=== PATIENT | female | born 1990 | race Caucasian/White ===

== ENCOUNTER 2020-05-15 10:15 | Outpatient (CLI) | payer OTHER, SELFPAY ==
--- NOTE | ~2020-05-15 | US_ITS ---
EXAMINATION: US abdomen complete EXAM DATE: 05/15/2020 11:23 INDICATION: Low abdominal pain. TECHNIQUE: Multiple grayscale and Doppler images of the complete abdomen were obtained (by a technolo gist who performed the scan) and subsequently reviewed. Comparison is made to prior examination from 05/31/2014. FINDINGS: The abdominal aorta is normal in caliber. Visualized portion IVC is patent. The pancreatic head a nd body are normal in appearance. The pancreatic tail is not visualized. The liver has normal echogenicity and contour. There are no focal liver lesions identified. There is no evidence of intrahepatic biliary duct dilation. Portal venous flow was seen in the hepatopedal , normal direction and has normal Doppler waveform. Common bile duct measures 3 mm, which is normal. The gallbladder wall is normal in thickness, with ex pected amount of distention. No sonographic evidence of pericholecystic fluid. There is no cholelit hiases. Technologist performing exam reports patient did not demonstrate sonographic Lewis's sign. Please note that this sign is less reliable in patients who have received pain medication. Right kidney: There is normal contour and echogenicity. It measures 12.5 x 5.1 x 4.3 centimeters. There are no focal renal lesions identified. There is no hydronephrosis. Left kidney: There is normal contour and echogenicity. It measures 12.0 x 5.1 x 5.7 centimeters. T here are no focal renal lesions identified. There is no hydronephrosis. The spleen measures 11.3 centimeters and is morphologically normal. IMPRESSION: Unremarkable complete abdominal ultrasound exam. Reviewed, dictated and finalized at location A.
== END 2020-05-15 10:16 | disposition home or self-care (01) ==
PROVIDERS: PCP Family Medicine; Visit Provider Nurse Practitioner Family
DX: R10.30 Lower abdominal pain, unspecified (principal)
CPT/HCPCS: 76700

== ENCOUNTER 2020-10-12 13:55 | Outpatient (CLI) | payer OTHER, SELFPAY | END 2020-10-12 13:56 | disposition home or self-care (01) | LOC: ANHAUDIO 13:57 | PROVIDERS: PCP Family Medicine; Visit Provider Otolaryngology | DX: H69.80 Other specified disorders of Eustachian tube, unspecified ear (principal) | CPT/HCPCS: 92557; 92567 ==

== ENCOUNTER 2020-10-27 10:51 | Outpatient (CLI) | payer OTHER, SELFPAY ==
--- NOTE | ~2020-10-27 | CT_ITS ---
EXAMINATION: CT sinus wo con DATE: 10/27/2020 11:15 INDICATION: Pain and pressure over sinuses TECHNIQUE: Computed tomography (CT) of the paranasal sinuses was performed without contrast. Iterativ e reconstruction technique was employed. Exam dose: 302.19 mGy-cm total exam DLP. COMPARISON: 04/25/2017 CT sinuses FINDINGS: The nasal septum is midline. The nasal turbinates are moderately prominent in size, right g reater than left. There is evidence of resection of the uncinate processes and partial ethmoidectomies bilaterally. The paranasal sinuses and ostiomeatal units are patent. The mastoid air cells are normally developed and aerated. Middle and inner ear apparatus appear normal bilaterally. IMPRESSION: Postoperative changes Patent paranasal sinuses, ostiomeatal units and mastoid air cells Reviewed, dictated and finalized at Location A. Reviewed, dictated and finalized at location A. MOBILE RENTAL CLERK
== END 2020-10-27 10:52 | disposition home or self-care (01) ==
PROVIDERS: PCP Family Medicine; Visit Provider Otolaryngology
DX: J32.9 Chronic sinusitis, unspecified (principal); Z98.890 Other specified postprocedural states
CPT/HCPCS: 70486

== ENCOUNTER 2020-11-03 10:55 | Outpatient (CLI) | payer OTHER, SELFPAY ==
--- NOTE | ~2020-11-03 | XR_ITS ---
EXAMINATION: XR chest 2V DATE: 11/03/2020 11:08 INDICATION: Palpitations. TECHNIQUE: Frontal and lateral views of the chest were obtained. COMPARISON: Chest 2 views 04/03/2017 FINDINGS: The chest demonstrates clear lungs without pneumonia, pleural effusion, or pneumothorax. Th e heart size is normal. IMPRESSION: 1. No acute cardiopulmonary disease. Reviewed, dictated and finalized at location A. RVISOR REMELT
== END 2020-11-03 10:56 | disposition home or self-care (01) ==
PROVIDERS: PCP Family Medicine; Visit Provider Nurse Practitioner Family
DX: R00.2 Palpitations (principal); R07.89 Other chest pain
CPT/HCPCS: 71046

== ENCOUNTER 2021-06-05 07:53 | Outpatient (CLI) | payer OTHER, SELFPAY | END 2021-06-05 07:54 | disposition home or self-care (01) | LOC: ANHBWCAUD 07:53 | PROVIDERS: PCP Family Medicine; Visit Provider Otolaryngology | DX: H90.3 Sensorineural hearing loss, bilateral (principal); H72.02 Central perforation of tympanic membrane, left ear | CPT/HCPCS: 92557; 92567 ==

== ENCOUNTER 2021-06-08 12:25 | Outpatient (RCR) | payer OTHER, SELFPAY | END 2021-09-06 23:59 | disposition home or self-care (01) | LOC: ANHAUDASC 12:25 | PROVIDERS: PCP Family Medicine; Visit Provider Otolaryngology | DX: Z46.1 Encounter for fitting and adjustment of hearing aid (principal) | CPT/HCPCS: V5160; V5261 ==

== ENCOUNTER 2021-08-01 12:50 | Outpatient (CLI) | payer OTHER, SELFPAY ==
--- NOTE | 2021-08-01 | ECG_ITS ---
Measurements Intervals [place] Rate: 90 P: 56 OK: 116 QRS: 57 QRSD: 86 T: 36 QT: 358 QTc: 440 Interpretive Statements SINUS RHYTHM WITH SHORT OK INTERVAL INCOMPLETE RIGHT BUNDLE BRANCH BLOCK BORDERLINE T WAVE ABNORMALITY- ANTERIOR LEADS BASELINE WANDER- V3 BORDERLINE ECG Electronically Signed On 08-01-2021 13:42:14 INVESTIGATIONS CHIEF by Diogo Torres D.O.
== END 2021-08-01 12:51 | disposition home or self-care (01) ==
LOC: ANHCARD 12:52
PROVIDERS: PCP Family Medicine; Visit Provider Nurse Practitioner Family
DX: R00.2 Palpitations (principal)
CPT/HCPCS: 93005

== ENCOUNTER 2021-09-18 09:18 | Outpatient (RCR) | payer OTHER, SELFPAY | END 2021-12-17 23:59 | disposition home or self-care (01) | LOC: ANHBWCAUD 09:18 | PROVIDERS: PCP Family Medicine; Visit Provider Family Medicine | DX: Z46.1 Encounter for fitting and adjustment of hearing aid (principal) | CPT/HCPCS: 99199 ==

== ENCOUNTER 2021-10-23 13:41 | Outpatient (CLI) | payer OTHER, SELFPAY ==
--- NOTE | 2021-10-23 13:46 | ECHO_ITS ---
Patient Info Name: Lucy Raygoza Age: 31 years : 1990 Gender: Female Ht: 65 in Wt: 150 lbs BSA: 1.78 m2 HR: 103 bpm BP: 114 / 78 mmHg Technical Quality: Good Exam Date: 10/23/2021 1:55 PM Exam Location: [facility] Patient Status: Outpatient Admit Date: 10/23/2021 Staff Ordering Physician: Diogo Torres DO Mold Sheet Cleaner: Ofelia Glasgow RDCS Attending Provider: Diogo Torres DO Referring Physician: Brian CERRATO; Exam Type: CA echo doppler color flow Study Info Indications R06.00 - Dyspnea, unspecified Complete two-dimensional, color flow and Doppler transthoracic echocardiogram is performed. Summary 1. Complete two-dimensional, color flow and Doppler transthoracic echocardiogram is performed. 2. Left ventricular chamber dimension is normal. 3. Left ventricular systolic function is normal, estimated at 65-70%. 4. The left ventricular diastolic function is normal. 5. E/e' 5 is not elevated. 6. Global longitudinal strain is normal at -20.3%. 7. The aortic valve is not well visualized. Cannot determine number of aortic valve leaflets. 8. There is mild aortic valve sclerosis. 9. There is trace tricuspid valve regurgitation. Left Ventricle E/e' 5 is not elevated. Global longitudinal strain is normal at -20.3%. Left ventricular chamber dimension is normal. Left ventricular systolic function is normal, estimated at 65-70%. The left ventricular diastolic function is normal. Right Ventricle Right ventricular chamber dimension is normal. Right ventricular systolic function is normal. Left Atria Left atrial chamber dimension is normal. Right Atria Right atrial chamber dimension is normal. Aortic Valve The aortic valve is not well visualized. Cannot determine number of aortic valve leaflets. There is mild aortic valve sclerosis. There is no aortic valve stenosis. There is no aortic valve regurgitation. Pulmonic Valve There is no pulmonic regurgitation. Mitral Valve There is no mitral valve stenosis. There is no mitral valve regurgitation. Tricuspid Valve RVSP is not calculated due to an inadequate TR jet. There is trace tricuspid valve regurgitation. Pericardium/Pleural There is no pericardial effusion. Inferior Vena Cava Normal inferior vena cava with >50% collapse upon inspiration consistent with normal right atrial pressure, 5 mmHg. Aorta The aortic root size at the sinus of Valsalva is normal. Left Ventricular Outflow Tract Name Value Normal LVOT 2D LVOT Diameter 2.0 cm LVOT Doppler LVOT Peak Gradient 4 mmHg LVOT Mean Gradient 3 mmHg LVOT VTI 21 cm LVOT VTI/AV VTI Ratio 0.9 LVOT Stroke Volume 65 ml LVOT CO 6.0 l/min LVOT CI 3.4 l/min/m2 Pulmonic Valve Name Value Normal
== END 2021-10-23 13:42 | disposition home or self-care (01) ==
LOC: ANHCARD 13:41
PROVIDERS: PCP Family Medicine; Visit Provider Internal Medicine Cardiovascular Disease
DX: R06.00 Dyspnea, unspecified (principal)
CPT/HCPCS: 93306

== ENCOUNTER 2022-04-30 11:53 | Outpatient (CLI) | payer OTHER, SELFPAY | END 2022-04-30 11:54 | disposition home or self-care (01) | LOC: ANHBWCAUD 11:53 | PROVIDERS: PCP Family Medicine; Visit Provider Otolaryngology | DX: H90.A21 Sensorineural hearing loss, unilateral, right ear, with restricted hearing on the contralateral side (principal) | CPT/HCPCS: 92557; 92567 ==

== ENCOUNTER 2022-07-18 17:04 | Outpatient (CLI) | payer OTHER, SELFPAY ==
--- NOTE | ~2022-07-18 | MR_ITS ---
EXAMINATION: MR brain IAC wo/w con DATE: 07/18/2022 18:00 INDICATION: Profound left-sided hearing loss. Left-sided tinnitus. Headache. TECHNIQUE: Magnetic resonance imaging (MRI) of the brain, brainstem, and internal auditory canals was performed without and with 15 mL MultiHance intravenous contrast. COMPARISON: None. FINDINGS: There is no intracranial hemorrhage, acute infarction, or abnormal intracranial mass lesion . The ventricles are normal in size. The paranasal sinuses are clear. The orbits are normal. The inte rnal auditory canals and inner and middle ears are normal. The mastoid air cells are normal. IMPRESSION: 1. Normal brain. Reviewed, dictated and finalized at location A. ENTIALING COORDINATOR IMPRESSION: 1. Normal brain.
== END 2022-07-18 17:05 | disposition home or self-care (01) ==
PROVIDERS: PCP Family Medicine
DX: H91.90 Unspecified hearing loss, unspecified ear (principal)
CPT/HCPCS: 70553; A9577

== ENCOUNTER 2022-09-16 00:09 | Day surgery (SDC) | payer OTHER, SELFPAY ==
[2022-09-04 13:31] VITALS: BMI 26.7
--- NOTE | 2022-09-04 13:49 | PC.NURSE ---
Report to the Outpatient Waiting Room, entrance under the green pavilion located off [facility], at time 0615 on date 09/16/22. Planned Procedure Time: _0815 Time changes happen often and if your time is changed the preop area will call you the afternoon before. - You and your visitor will be asked to self-screen and do not enter if you have any COVID symptoms. - Only one visitor is requested with a max of two and NO children visitors are allowed at this time. - The patient visitor may be requested to leave or wait in car when not with patient due to distancing restrictions. - A mask is optional within the hospital. Patients may have clear liquids (water, carbonated beverages, clear teas, apple juice) until 3 hours prior to surgery with a maximum of 20 ounces. - No food from midnight until time of surgery - Infants may have breast milk until 4 hours before surgery, infant formula 6 hours prior to surgery. - Children will be allowed to drink immediately following surgery. If applicable, please bring a bottle or sippy cup to assist with drinking. Juice, water, soda, and popsicles are readily available. For infants on formula, please bring formula the day of surgery. Pacifiers are allowed. Take the following medications with a SIP of water the morning of surgery: _Alprazolam__ Medications to discontinue per physician __Vitamins/supplements__ Date to take last dose_09/13/22_ Please no make-up, nail burkinan, hairspray, perfume, deodorant, or body powder the day of surgery. No jewelry (including any body piercings) or valuables the day of surgery, leave them at home. Please take a shower or bath the night before, or the morning of, surgery with an antibacterial soap. Wear comfortable, loose fitting clothing. Children are encouraged to wear pajamas. - Jewelry must be removed prior to entering the operating room. Rings and piercings that are not removed may be cut off. - The hospital will not accept responsibility for valuables. - Please leave all valuables, including medications, at home the day of surgery. If you are going home after surgery, a licensed food service driver must drive you home. - NO public transportation without another adult if you receive anesthesia. - We recommend that an adult stay with you for 24 hours following discharge. - We also recommend that you do not drive, make important decision, drink alcoholic beverages, or take any drugs that were not prescribed by your health care provider for at least 24 hours after your discharge time. For Pediatric surgeries, we recommend two adults accompany the child home. Follow any additional instructions given to you from your surgeon. If you or anyone in your household have experienced Covid symptoms in the past week, please notify your surgeon or the nurse liaison at the phone number below for possible testing. Telephone instructions given to Lucy Raygoza and asked if any additional questions and then verbalized understanding. Patient advised to call surgeon office or pre surgery nurse liaison [phone] if any additional questions.
[2022-09-16] MEDS: ACETAMINOPHEN 500 MG TABLET 1000 MG PO (07:10)
--- NOTE | 2022-09-16 07:21 | WPDHPUPDATE1 ---
History and Physical Update Update Date/Time: 09/16/22 07:21 History and Physical has been reviewed, including an updated exam of the patient. There are NO changes in the patient's condition. Risks, benefits, and alternatives have been discussed and questions answered. Patient agrees to proceed with procedure.
--- NOTE | 2022-09-16 07:21 | PM.HPGS ---
History of Present Illness History of Present Illness Consent: Risks, benefits, and alternatives have been discussed and questions answered. Patient agrees to proceed with procedure. Chief complaint: menorrhagia Narrative: Lucy Raygoza is a 32 year old female for irregular and heavy cycles. It was recommended to proceed with D&C hysteroscopy. Risks of infection, bleeding, perforation, and fluid imbalance were reviewed. Possible pathology was also discussed. Patient voices understanding and agrees to proceed. Review of Systems Constitutional: Constitutional: Reports other ( Increased acne) ENT: Reports other ( hay fever) Gastrointestinal: Gastrointestinal: Reports constipation Musculoskeletal: Musculoskeletal: Reports back pain, Reports arthralgias and Reports neck pain Psychiatric: Psychiatric: Reports anxiety [facility] Past Medical History Medical History (Updated 09/16/22 @ 07:27 by Laura Zamarripa MD) Anxiety Asthma GERD without esophagitis PAC (premature atrial contraction) SVT (supraventricular tachycardia) Vitamin D deficiency Family History Family History Grandparent Diabetes mellitus Hypertension Cerebrovascular accident Family history of type 2 diabetes mellitus Family history of heart disease in male family member before age 55 Father Heart disease Kidney failure Mother Diabetes mellitus Sibling No problems noted. 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 Gender identity (if verbalized by the patient): Female Spiritual care concerns: No Meds Home Medications and Allergies Home Medications Medication Instructions Recorded Confirmed Type trazodone 50 mg tablet 50 mg PO DAILY #30 tabs 09/28/20 09/04/22 Rx montelukast 10 mg tablet 10 mg PO DAILY #90 tabs 03/11/22 09/04/22 Rx (Singulair) alprazolam 0.25 mg tablet 0.25 mg PO DAILY PRN anxiety #10 04/23/22 09/04/22 Rx tabs cyclobenzaprine 10 mg tablet 10 mg PO DAILY PRN muscle spasm 06/18/22 09/04/22 Rx #30 tabs albuterol sulfate 90 mcg/actuation 2 inh inhalation Q4H shortness of 08/06/22 09/04/22 Rx aerosol inhaler (Ventolin HFA) breath or wheezing #8.5 grams bupropion HCl 150 mg 24 hr tablet, 150 mg PO HS 09/04/22 09/04/22 History extended release (Wellbutrin XL) cholecalciferol (vitamin D3) 10 10 mcg PO DAILY 09/04/22 09/04/22 History mcg (400 unit) capsule garlic 500 mg PO DAILY 09/04/22 09/04/22 History multivit with minerals-iron 18 1 tablet PO DAILY 09/04/22 09/04/22 History mg-folic ac 400 mcg-vit K 25 mcg tablet (Adults Multivitamin) Allergies Allergy/AdvReac Type Severity Reaction Status Date / Time No Known Allergies Allergy Verified 06/27/22 13:42 Exam Const: General: healthy appearing and alert Orientation/consciousness: patient oriented x3 Resp: Effort & Inspection: normal respiratory effort GI: GI Palp: Yes Soft to palpation, No Tenderness to palpation present (GI) and No Palpable mass present : External Female Exam: normal external appearance Speculum Exam - Vagina: normal appearance of the vagina and normal vaginal discharge Speculum Exam - Cervix: normal appearance of the cervix Bimanual exam- vagina & uterus: uterine size normal and consistency normal Bimanual Exam- Adnexa, other: normal adnexae and No adnexal tenderness Neuro: General: patient oriented x3 Assessment and Plan Assessment and plan (1) Menorrhagia: Code(s): N92.0 - Excessive and frequent menstruation with regular cycle Status: Acute Assessment and Plan: plan is to proceed with D&C hysteroscopy
[2022-09-16 07:25] VITALS: BP 119/66; PULSE 100; RESP 18; TEMP 37.4; O2SAT 100
[2022-09-16] MEDS: LACTATED RINGERS 1,000 ML 30 ML IV CONT (07:27)
--- NOTE | 2022-09-16 07:27 | WPDANESEPPF ---
Anes - Initial Pre Proc Eval Procedure: Operation Date: 09/16/22 08:15 Proposed Procedures p Hysteroscopy, Dilation and Curettage - Laura Zamarripa MD Date/Time: 09/16/22 07:27 Surgeon: Laura Zamarripa MD Pre Op Diagnosis: menorrhagia Patient Data Age: 32 Gender: F Height: 1.65 m Weight: 73 kg Allergies Allergy/AdvReac Type Severity Reaction Status Date / Time No Known Allergies Allergy Verified 09/16/22 07:28 Home Medications Medication Instructions Recorded Confirmed Type trazodone 50 mg tablet 50 mg PO DAILY #30 tabs 09/28/20 09/04/22 Rx montelukast 10 mg tablet 10 mg PO DAILY #90 tabs 03/11/22 09/04/22 Rx (Singulair) alprazolam 0.25 mg tablet 0.25 mg PO DAILY PRN anxiety #10 04/23/22 09/04/22 Rx tabs cyclobenzaprine 10 mg tablet 10 mg PO DAILY PRN muscle spasm 06/18/22 09/04/22 Rx #30 tabs albuterol sulfate 90 mcg/actuation 2 inh inhalation Q4H shortness of 08/06/22 09/04/22 Rx aerosol inhaler (Ventolin HFA) breath or wheezing #8.5 grams bupropion HCl 150 mg 24 hr tablet, 150 mg PO HS 09/04/22 09/04/22 History extended release (Wellbutrin XL) cholecalciferol (vitamin D3) 10 10 mcg PO DAILY 09/04/22 09/04/22 History mcg (400 unit) capsule garlic 500 mg PO DAILY 09/04/22 09/04/22 History multivit with minerals-iron 18 1 tablet PO DAILY 09/04/22 09/04/22 History mg-folic ac 400 mcg-vit K 25 mcg tablet (Adults Multivitamin) Patient hx anesthesia problems: none Family hx anesthesia problems: none Results Review: All pre-operative results and documents have been reviewed as part of the pre-operative evaluation. [facility] Past Medical History Medical History (Updated 09/16/22 @ 07:27 by Laura Zamarripa MD) Anxiety Asthma GERD without esophagitis PAC (premature atrial contraction) SVT (supraventricular tachycardia) Vitamin D deficiency Family History Family History Grandparent Diabetes mellitus Hypertension Cerebrovascular accident Family history of type 2 diabetes mellitus Family history of heart disease in male family member before age 55 Father Heart disease Kidney failure Mother Diabetes mellitus Sibling No problems noted. 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 Informed Consent: The patient's anesthetic plan and its attendant risks and benefits were discussed with the patient/family/POA. Questions were solicited and answers provided to the satisfaction of the patient/family/POA.
[2022-09-16] MEDS: KETOROLAC 30 MG/ML VIAL (*BKC) IV PUSH (08:06)
[2022-09-16] MEDS: LIDO 1%/EPINEPHRINE/PF 1:200,000 30 ML VIAL 10 ML XX (08:16)
--- NOTE | 2022-09-16 08:19 | W.PM.PROC2 ---
Procedure Note - Detailed Date of Procedure 09/16/22 Pre-op Diagnosis menorrhagia Post-op Diagnosis Same Procedure Performed D&C hysteroscopy Surgeon Laura Zamarripa MD Anesthesia MAC and Local Findings The uterus sounds to 8cm. The anterior endometrium appears generally thickened. There was an endocervical polyp. Description of Procedure The patient is taken to the operating room and placed under anesthesia in the dorsal lithotomy position. She was prepped and draped in the usual sterile fashion. The bivalve speculum was placed in the vagina and the cervix grasped on the anterior lip with a tenaculum. The cervix is injected in each quadrant with 1% lidocaine. The diagnostic hysteroscope was placed with the above-stated findings. The hysteroscope is removed and the sharp curette used to curette the endometrium until a good uterine cry was noted in all areas. All instruments are removed. The patient was awakened from anesthesia and taken to recovery in stable condition. Sponge, needle, and instrument counts are correct per the OR staff. Estimated Blood Loss 5 Drains No Packing No Pathology Yes ( Endometrial curettings) Complications No immediate complications Condition Stable Disposition PACU
[2022-09-16 08:22] VITALS: BP 132/73; PULSE 80; RESP 16; O2SAT 96
[2022-09-16] MEDS: fentaNYL CITRATE INJ (*CRX) 100 MCG/2 ML VIAL 25 MCG IV PUSH ×2 (08:26→08:32)
[2022-09-16] MEDS: oxyCODONE HCL (*CRX) 5 MG TAB IR PO (08:40)
[2022-09-16 08:45] VITALS: BP 120/70; PULSE 92; RESP 20
[2022-09-16 09:15] VITALS: BP 117/70; PULSE 72; RESP 20
[2022-09-16 09:25] VITALS: BP 110/62; PULSE 70; RESP 20
== END 2022-09-16 09:30 | disposition home or self-care (01) ==
PROVIDERS: PCP Family Medicine; Visit Provider Obstetrics & Gynecology Gynecology
PROC: 0U5B8ZZ Destruction of Endometrium, Via Natural or Artificial Opening Endoscopic (ICD-10-PCS; CPT 58563; principal; 2022-09-16 08:15)
DX: N92.0 Excessive and frequent menstruation with regular cycle (principal); N84.0 Polyp of corpus uteri; J45.909 Unspecified asthma, uncomplicated; Z79.51 Long term (current) use of inhaled steroids
CPT/HCPCS: 58558; 88305; A9270; J1885; J2250; J2704; J3010; J7120

== ENCOUNTER 2023-02-11 11:26 | Outpatient (CLI) | payer OTHER, SELFPAY ==
--- NOTE | ~2023-02-11 | XR_ITS ---
EXAM: XR hip RT 1V w AP pelvis DATE: 02/11/2023 11:54 HISTORY: M25.551 LATERAL HIP PAIN, BEGAN AFTER VAG DELIVERY 9YRS AGO . COMPARISON: None available. FINDINGS: Normal mineralization. No fracture or dislocation. No lytic or blastic lesion. Joint space s are maintained. No erosion or periosteal change. Soft tissues within normal limits. IMPRESSION: Normal pelvis and right hip radiograph findings. Reviewed, dictated and finalized at location K.
== END 2023-02-11 11:27 | disposition home or self-care (01) ==
LOC: ANHIMG 11:29
PROVIDERS: PCP Family Medicine; Visit Provider Physician Assistant Medical
DX: G89.29 Other chronic pain (principal); M25.551 Pain in right hip
CPT/HCPCS: 73501

== ENCOUNTER 2023-02-26 00:12 | Day surgery (SDC) | payer OTHER, SELFPAY ==
[2023-02-17 12:29] VITALS: BMI 28.3
[2023-02-26 10:20] VITALS: BP 127/77; PULSE 97; RESP 18; TEMP 36.6; O2SAT 100
[2023-02-26] MEDS: LACTATED RINGERS 1,000 ML 150 ML IV CONT (10:36)
--- NOTE | 2023-02-26 11:04 | WPDANESEPPF ---
Anes - Initial Pre Proc Eval Procedure: Operation Date: 02/26/23 11:30 Proposed Procedures p Colonoscopy - Missael Bailey MD Date/Time: 02/26/23 11:04 Surgeon: Missael Bailey MD Pre Op Diagnosis: constipation Patient Data Age: 32 Gender: F Height: 1.65 m Weight: 76 kg Last Vital Signs Temp 98 F 02/26/23 10:20 Pulse 97 02/26/23 10:20 Resp 18 02/26/23 10:20 BP 127/77 02/26/23 10:20 Pulse Ox 100 02/26/23 10:20 O2 Del Method Room Air 02/26/23 10:20 Allergies Allergy/AdvReac Type Severity Reaction Status Date / Time No Known Allergies Allergy Verified 02/26/23 10:13 Home Medications Medication Instructions Recorded Confirmed Type trazodone 50 mg tablet 50 mg PO DAILY #30 tabs 09/28/20 02/17/23 Rx montelukast 10 mg tablet 10 mg PO DAILY #90 tabs 03/11/22 02/17/23 Rx (Singulair) cholecalciferol (vitamin D3) 10 10 mcg PO DAILY 09/04/22 02/17/23 History mcg (400 unit) capsule garlic 500 mg PO DAILY 09/04/22 02/17/23 History multivit with minerals-iron 18 1 tablet PO DAILY 09/04/22 02/17/23 History mg-folic ac 400 mcg-vit K 25 mcg tablet (Adults Multivitamin) bupropion HCl 150 mg 24 hr tablet, 150 mg PO HS #90 tabs 10/02/22 02/17/23 Rx extended release (Wellbutrin XL) cyclobenzaprine 10 mg tablet 10 mg PO DAILY PRN muscle spasm 11/04/22 02/17/23 Rx #30 tabs alprazolam 0.25 mg tablet 0.25 mg PO DAILY PRN anxiety #10 01/24/23 02/17/23 Rx tabs progesterone micronized 200 mg 200 mg PO MONTHLY 02/17/23 02/17/23 History capsule albuterol sulfate 90 mcg/actuation 2 inh inhalation Q4H shortness of 02/21/23 02/26/23 Rx aerosol inhaler (Ventolin HFA) breath or wheezing #8.5 grams Patient hx anesthesia problems: none Family hx anesthesia problems: none Results Review: All pre-operative results and documents have been reviewed as part of the pre-operative evaluation. [facility] Past Medical History Medical History Anxiety Asthma GERD without esophagitis PAC (premature atrial contraction) SVT (supraventricular tachycardia) Vitamin D deficiency Family History Family History Grandparent Diabetes mellitus Hypertension Cerebrovascular accident Family history of type 2 diabetes mellitus Family history of heart disease in male family member before age 55 Father Heart disease Kidney failure Mother Diabetes mellitus Sibling No problems noted. 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 Informed Consent: The patient's anesthetic plan and its attendant risks and benefits were discussed with the patient/family/POA. Questions were solicited and answers provided to the satisfaction of the patient/family/POA.
--- NOTE | 2023-02-26 11:13 | PM.HPGS ---
History of Present Illness History of Present Illness Consent: Risks, benefits, and alternatives have been discussed and questions answered. Patient agrees to proceed with procedure. Chief complaint: constipation Narrative: Lucy Raygoza is a 32 year old female with constipation and cramping, sometimes she does not go for a week unless she uses miralax. Never had colonoscopy. Review of Systems Constitutional: Constitutional: Denies headache(s) and Denies weakness Eyes: Eyes: Denies blurry vision ENT: Reports Normal hearing present, Denies headache(s) and Denies neck pain Cardiovascular: Cardiovascular: Denies chest pain and Denies dyspnea Respiratory: Respiratory: Denies dyspnea Gastrointestinal: Gastrointestinal: Reports no additional gastrointestinal complaints Genitourinary: Genitourinary: Denies dysuria Musculoskeletal: Musculoskeletal: Denies neck pain Integumentary/Breasts: Skin/Breast: Denies dry skin Neurologic: Reports Normal hearing present, Denies headache(s) and Denies weakness Psychiatric: Psychiatric: Denies anxiety Endocrine: Endocrine: Denies change in body appearance Hematologic/Lymphatic: Hematologic/Lymphatic: Denies easy bleeding Allergic/Immunologic: Allergic/Immunologic: Denies urticaria PMFSH Past Medical History Medical History Anxiety Asthma GERD without esophagitis PAC (premature atrial contraction) SVT (supraventricular tachycardia) Vitamin D deficiency Family History Family History Grandparent Diabetes mellitus Hypertension Cerebrovascular accident Family history of type 2 diabetes mellitus Family history of heart disease in male family member before age 55 Father Heart disease Kidney failure Mother Diabetes mellitus Sibling No problems noted. 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[employer] Gender identity (if verbalized by the patient): Female Spiritual care concerns: No Meds Home Medications and Allergies Home Medications Medication Instructions Recorded Confirmed Type trazodone 50 mg tablet 50 mg PO DAILY #30 tabs 09/28/20 02/17/23 Rx montelukast 10 mg tablet 10 mg PO DAILY #90 tabs 03/11/22 02/17/23 Rx (Singulair) cholecalciferol (vitamin D3) 10 10 mcg PO DAILY 09/04/22 02/17/23 History mcg (400 unit) capsule garlic 500 mg PO DAILY 09/04/22 02/17/23 History multivit with minerals-iron 18 1 tablet PO DAILY 09/04/22 02/17/23 History mg-folic ac 400 mcg-vit K 25 mcg tablet (Adults Multivitamin) bupropion HCl 150 mg 24 hr tablet, 150 mg PO HS #90 tabs 10/02/22 02/17/23 Rx extended release (Wellbutrin XL) cyclobenzaprine 10 mg tablet 10 mg PO DAILY PRN muscle spasm 11/04/22 02/17/23 Rx #30 tabs alprazolam 0.25 mg tablet 0.25 mg PO DAILY PRN anxiety #10 01/24/23 02/17/23 Rx tabs progesterone micronized 200 mg 200 mg PO MONTHLY 02/17/23 02/17/23 History capsule albuterol sulfate 90 mcg/actuation 2 inh inhalation Q4H shortness of 02/21/23 02/26/23 Rx aerosol inhaler (Ventolin HFA) breath or wheezing #8.5 grams Allergies Allergy/AdvReac Type Severity Reaction Status Date / Time No Known Allergies Allergy Verified 02/26/23 10:13 Vital Signs Vital Signs - 24 hr 02/26/23 10:20 Temperature 98 F Pulse Rate 97 Respiratory Rate 18 Blood Pressure 127/77 Pulse Oximetry 100 Oxygen Delivery Room Air Exam Const: General: comfortable and no acute distress HENMT: Face/Nose/Sinus: Normal nares present Eyes: General: appearance normal, both eyes and
[2023-02-26 11:40] VITALS: BP 105/58; PULSE 103; RESP 23; O2SAT 100
[2023-02-26 11:50] VITALS: BP 99/57; PULSE 92; RESP 20; O2SAT 99
[2023-02-26 12:00] VITALS: BP 117/76; PULSE 91; RESP 20; O2SAT 99
== END 2023-02-26 12:07 | disposition home or self-care (01) ==
PROVIDERS: PCP Family Medicine; Visit Provider Internal Medicine Gastroenterology
PROC: 0DJD8ZZ Inspection of Lower Intestinal Tract, Via Natural or Artificial Opening Endoscopic (ICD-10-PCS; CPT 45378; principal; 2023-02-26 11:30)
DX: K59.09 Other constipation (principal); D12.3 Benign neoplasm of transverse colon; J45.909 Unspecified asthma, uncomplicated; I49.1 Atrial premature depolarization; I47.1 Supraventricular tachycardia; K21.9 Gastro-esophageal reflux disease without esophagitis; F41.9 Anxiety disorder, unspecified; E55.9 Vitamin D deficiency, unspecified; Z79.51 Long term (current) use of inhaled steroids
CPT/HCPCS: 45385; 88305; J2704; J7120

== ENCOUNTER 2023-04-07 14:12 | Outpatient (CLI) | payer OTHER, SELFPAY ==
--- NOTE | ~2023-04-07 | XR_ITS ---
EXAMINATION: XR sacrum coccyx min 2V DATE: 04/07/2023 14:29 INDICATION: Sacrococcygeal pain post fall from swimming pool ladder TECHNIQUE: AP, angled AP and lateral views of the sacrum and coccyx were obtained. COMPARISON: 11/19/2017 FINDINGS: Bone alignment is normal. Sacral arches are intact. No evident fracture. Joint and disc spaces are no rmal throughout. Soft tissues are unremarkable. IMPRESSION: 1. Negative sacrum and coccyx radiographs. Reviewed, dictated and finalized at location B.
== END 2023-04-07 14:13 | disposition home or self-care (01) ==
PROVIDERS: PCP Family Medicine; Visit Provider Nurse Practitioner Family
DX: S39.92XA Unspecified injury of lower back, initial encounter (principal); W11.XXXA Fall on and from ladder, initial encounter; Y92.34 Swimming pool (public) as the place of occurrence of the external cause
CPT/HCPCS: 72220

== ENCOUNTER 2025-04-13 12:19 | Outpatient (CLI) | payer OTHER, SELFPAY ==
--- NOTE | ~2025-04-13 | XR_ITS ---
EXAMINATION: XR thoracic spine 2V DATE: 04/13/2025 12:52 INDICATION: Pain. Chronic TECHNIQUE: One AP, lateral and lateral swimmer's views of the thoracic spine were obtained. COMPARISON: None. FINDINGS: Thoracic vertebral body heights are within normal limits. No compression fracture in the thoracic spi ne. Mild degenerative change scattered throughout the thoracic spine. IMPRESSION: 1. No compression fracture in the thoracic spine. 2. Mild degenerative change scattered throughout the thoracic spine. If symptoms persist or worsen, consider an MRI of the thoracic spine for further assessment. Reviewed, dictated and finalized at location A. IMPRESSION: 1. No compression fracture in the thoracic spine. 2. Mild degenerative change scattered throughout the thoracic spine. If symptoms persist or worsen, consider an MRI of the thoracic spine for furthe r assessment.
--- NOTE | ~2025-04-13 | XR_ITS ---
Exam: X-ray sacrum coccyx minimum 2 views HISTORY: Pain, chronic. COMPARISON: 04/07/2023 TECHNIQUE: 3 images were obtained. FINDINGS: Bone mineralization is within normal limits. No fracture. No dislocation. No significant degenerative change. Possible umbilical ornament. IMPRESSION: 1. Unremarkable study. If symptoms persist or worsen, consider a short-term follow-up study or additional imaging for furthe r assessment. Reviewed, dictated and finalized at location A. IMPRESSION: 1. Unremarkable study. If symptoms persist or worsen, consider a short-term follow-up study or additio nal imaging for further assessment.
--- NOTE | ~2025-04-13 | XR_ITS ---
EXAMINATION: XR lumbar spine min 4V DATE: 04/13/2025 12:53 INDICATION: Pain TECHNIQUE: 5 images of the lumbar spine, and cone-down lateral view of the lumbosacral junction were obtained. COMPARISON: None. FINDINGS: Mild dextroconvex curvature of the lumbar spine. Lumbar vertebral body heights are within n ormal limits. No compression fracture and lumbar spine. Mild joint space narrowing at the L5-S1 level . Mild degenerative changes in the lower lumbar facet joints. No abnormal subluxation with flexion or extension. Partial sacralization of the right transverse process of L5. Possible umbilical ornament. IMPRESSION: 1. No compression fracture in the lumbar spine. 2. Mild degenerative change in the lower lumbar spine. If symptoms persist or worsen, consider an MRI of the lumbar spine for further assessment. Reviewed, dictated and finalized at location A.
--- NOTE | ~2025-04-13 | XR_ITS ---
EXAMINATION:XR cervical spine min 6V DATE: 04/13/2025 12:52 INDICATION: Neck pain TECHNIQUE: AP, lateral, lateral swimmers and odontoid views of the cervical spine are provided. COMPARISON: None FINDINGS: Alignment is normal. Odontoid is intact. Normal atlantoaxial interval. Vertebral body heights are no rmal. Disc spaces are normal. No compression fracture in the cervical spine. No abnormal subluxation with flexion or extension. IMPRESSION: 1. Unremarkable x-rays of the cervical spine. If symptoms persist or worsen, consider a CT or MRI of the cervical spine for further assessment. Reviewed, dictated and finalized at location A. IMPRESSION: 1. Unremarkable x-rays of the cervical spine. If symptoms persist or worsen, co nsider a CT or MRI of the cervical spine for further assessment.
--- OUTSIDE RECORDS SUMMARY | 2025-04-13 12:25 | XMS_ITS | Clinical Summary ---
Author Organization [facility] Address [address] [place] [address] Care Team Providers Care Custom Dressmaker Name Role Phone Kolby Gant MD Primary Care Provider [phone] Allergies No known active allergies Medications albuterol HFA (PROVENTIL HFA,VENTOLIN HFA,PROAIR HFA) 90 mcg/actuation inhaler Inhale 2 puffs every 4 (four) hours as needed for wheezing or shortness of breath 05/02/20 22 Active montelukast (SINGULAIR) 10 mg tabletIndications: Maintenance Therapy for Asthma,Seasonal Allergic Rhinitis Take 1 tablet (10 mg total) by mouth nightly 03/11/20 22 Active traZODone (DESYREL) 50 mg tablet Take 1 tablet (50 mg total) by mouth nightly as needed for sleep Active cyclobenzaprine (FLEXERIL) 10 mg tabletIndications: Muscle Spasm Take 1 tablet (10 mg total) by mouth 3 (three) times a day as needed for muscle spasms 05/02/20 22 Active buPROPion XL (WELLBUTRIN XL) 150 mg 24 hr tabletIndications: Anxiety with Depression Take 1 tablet (150 mg total) by mouth nightly at bedtime. 10/02/19 23 Active progesterone (PROMETRIUM) 200 mg capsuleIndications :hormone replacement Take 1 capsule (200 mg total) by mouth as directed Days 12-23 only 09/24/19 23 Active budesonide (RHINOCORT AQUA) 32 mcg/actuation nasal sprayIndications:A llergic Rhinitis Administer 1 spray into each nostril as needed for rhinitis or allergies Active no115/iron/folic acid ( 19 ORAL)Indications:s upplement Take 1 tablet by mouth every morning Active cholecalciferol (VITAMIN D-3) 25 mcg (1,000 unit) tabletIndications: Vitamin D Deficiency Take 1 tablet (1,000 Units total) by mouth every morning Active garlic 1,000 mg capsuleIndications :supplement Take 1 tablet by mouth every morning Active green tea leaf extract 250 mg capsuleIndications :supplement Take 1 tablet by mouth every morning Active turmeric root extract 500 mg capsuleIndications :supplement Take 1 tablet by mouth every morning Active ibuprofen (ADVIL,MOTRIN) 200 mg tab/capIndications :Pain Take 2 tablet/capsule (400 mg total) by mouth every 6 (six) hours as needed for pain Active metoprolol XL (TOPROL-XL) 25 mg extended release tabletIndications: Palpitations Take 1 tablet (25 mg total) by mouth daily as needed Per pt, currently taking 1/2 tab daily if needed only Active acetaminophen (TYLENOL) 500 mg tablet Take 2 tablets (1,000 mg total) by mouth every 6 (six) hours as needed for pain 30 tablet 11/05/19 23 Active ibuprofen (ADVIL,MOTRIN) 400 mg tablet Take 1.5 tablets (600 mg total) by mouth every 6 (six) hours as needed for pain 30 tablet 11/05/19 23 Active HYDROcodone-acetam inophen ([place]) 5-325 mg per tabletIndications: Pain Take 1 tablet by mouth every 6 (six) hours as needed for pain 18 tablet 11/05/19 23 Active Additional Information Patient not taking.Reported on 12/20/2024 ondansetron ODT (ZOFRAN-ODT) 4 mg disintegrating tablet Take 1 tablet (4 mg total) by mouth every 8 (eight) hours as needed for nausea or vomiting 20 tablet 11/05/19 23 Active Additional Information Patient not taking.Reported on 12/20/2024 ofloxacin (FLOXIN) 0.3 % otic solution Administer 5 drops into the left ear daily 5 mL 1 11/12/19 23 Active Additional Information Patient not taking.Reported on 12/20/2024 diazePAM (VALIUM) 5 mg tablet Take 1 tablet (5 mg total) by mouth every 6 (six) hours as needed (dizziness) 20 tablet 11/05/19 23 Active Additional Information Patient not taking.Reported on 12/20/2024 valACYclovir (VALTREX) 1 gram tablet Take 2 tablets (2,000 mg total) by mouth every 12 (twelve) hours 07/10/20 23 Active predniSONE (DELTASONE) 10 mg tablet 08/31/20 Active cefuroxime (CEFTIN) 500 mg tablet Take 1 tablet (500 mg total) by mouth every 12 (twelve) hours 08/29/20 Active celecoxib (CeleBREX) 200 mg capsuleIndications :arthritis Take 1 capsule (200 mg total) by mouth 2 (two) times a day for 7 days 14 capsule 01/26/20 24 Active Additional Information Patient not taking.Reported on 08/16/2024 Linzess 145 mcg capsule Take 1 capsule (145 mcg total) by mouth every morning 01/21/20 24 Active ALPRAZolam (XANAX) 0.5 mg tablet Take 1 tablet (0.5 mg total) by mouth as needed 01/22/20 24 Active Nurtec ODT tablet,disintegrat ing Take 1 tablet (75 mg total) by mouth 12/14/19 25 Active hydroxychloroquine (PLAQUENIL) 200 mg tablet Take 2 tablets (400 mg total) by mouth daily On 05/19 pt plan to continue 400mg dose. 180 tablet 1 12/23/19 25 025 Active Benlysta auto-injector INJECT 1 PEN UNDER THE SKIN EVERY 7 DAYS 4 mL 3 01/07/20 25 Active amoxicillin-clavul anate (AUGMENTIN) 875-125 mg per tablet Take 1 tablet by mouth every 12 (twelve) hours 12/11/19 25 Active cefdinir (OMNICEF) 300 mg capsule Take 1 capsule (300 mg total) by mouth every 12 (twelve) hours 01/20/20 25 Active ergocalciferol, vitamin D2, 50 mcg (2,000 unit) capsule 1 capsule daily Acti ve ferrous sulfate 325 mg (65 mg of elemental iron) tablet Take 1 tablet (325 mg total) by mouth daily Active fluconazole (DIFLUCAN) 150 mg tablet TAKE 1 TABLET BY MOUTH A ONE TIME DOSE FOR YEAST INFECTION 12/11/19 25 Active Vyvanse 20 mg capsule 01/07/20 25 Active Vyvanse 30 mg capsule 02/09/20 25 Active lisdexamfetamine (Vyvanse) 50 mg capsule daily 02/22/20 25 Active Active Problems Problem Noted Date Diagnosed Date Attention deficit hyperactivity disorder 025 Over weight 02/17/2025 Chronic sinusitis 09/29/2024 Mixed conductive and sensori neural hearing loss of left ear with restricted hearing of right ear 06/06/2022 Otosclerosis of left ear 06/06/2022 Hearing loss of left ear 06/06/2022 Encounters Date Type Department Care Team Description 02/17/2025 9:20 AM CDT Office Visit [facility] Advanced Medicine ([facility]) - [facility] ENT 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 ear (Primary Dx) 02/04/2025 Telephone [facility] Otolaryngology [address] [place] [address] Rosi Nichols MS from Last 3 Months Surgical History Surgery Date Site/Laterality Comments MYRINGOTOMY 09/01/2020 - 08/31/2021 Left DILATION AND CURETTAGE OF UTERUS 09/01/2022 - 10/01/2022 NASAL SEPTUM SURGERY 09/01/2015 - 08/31/2016 ELBOW FRACTURE SURGERY 09/01/1996 - 08/31/1997 Left preschool- pins placed Medical History Medical History Date Comments Seasonal allergies Anxiety Asthma Headache Motion sickness SVT (supraventricular tachycardia) Family History Medical History Relation Name Comments Cancer Paternal Grandfather Heart disease Paternal Grandfather Diabetes Paternal Grandmother Anesthesia problems Neg Hx Relation Name Status Comments Paternal Grandfather Paternal Grandmother Social History Tobacco Use Types Packs/Day Years Used Date Smoking Tobacco: Never Smokeless Tobacco: Never Tobacco Cessation:Counseling Given: Not Answered AUDIT-C Answer Date Recorded Frequency of Alcohol Consumption Not on file 12/20/2024 Q2: How many drinks containi ng alcohol do you have on a typical day when you are drinking? Patient does not drink Q3: How often do you have si x or more drinks on one occasion? 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 Gender Identity Female 06/06/2022 4:28 PM CDT Sexual Orientation Not on file Obstetrics History Last Filed Vital Signs Vital Sign Reading Time Taken Comments Blood Pressure 139/92 12/20/2024 9:43 AM CDT Pulse 97 12/20/2024 9:43 AM CDT Temperature 36.7 C (98 F) 12/20/2024 9:43 AM CDT Respiratory Rate 15 11/04/2022 11:52 AM ONLINE FACILITATOR Oxygen Saturation 100% 12/20/2024 9:43 AM CDT Inhaled Oxygen Concentration - - Weight 82.7 kg (182 lb 4.8 oz) 12/20/2024 9:43 A M CDT Height 165.1 cm (5' 5) 12/20/2024 9:43 AM CDT Body Mass Index 30.34 12/20/2024 9:43 AM CDT Plan of Treatment Health Maintenance Due Date Last Done Comments Cervical Cancer Screening 1992 Depression Screening 1992 Varicella Vaccines (1 of 2 - 13+ 2-dose series) 2005 Regular Well Visit/Exam 18-64 2010 Pneumococcal vaccine <65 (1 of 2 - PCV) 2011 Zoster Vaccine (1 of 2) 2011 DTaP/Tdap/Td Vaccine (8 - Td or Tdap) 10/06/2023 10/06/2013, 02/10/2007, 04/24/1998, Additional history exists Covid-19 Vaccine (3 - 2023-2 5 season) 2024 11/26/2021, 11/07/2020 Influenza Vaccine (#1) 2025 , 05/26/2020, 06/14/2018 Hepatitis B Screening Completed 1992 , 1992, 1992 HPV Vaccines Completed 08/19/2007, 04/01, 02/10/2007 Hepatitis C Screening Completed 02/16/2024 Medical Devices Implanted Type Area Blacksmith Assistant Device Identifier Shelf Expiration Date Model / Serial / Lot [employer] Eclipse .6mm 4.5mm Wide Flat Ribbon [employer] 360d Piston Otology [id number] - [id number] Implanted:Qty: 1 on 11/04/2022 by Reji Quiroz MD at [facility] Left: Ralph Silva [id number] 06/01/2027 [id number] / / [id number] Procedures Procedure Name Priority Date/Time Associated Diagnosis Comments HEPATITIS C ANTIBODY Routine 02/16/2024 2:00 PM CDT Other systemic lupus erythematosus with other organ involvement (HCC) from Last 3 Months or Most Recently Relevant to Health Maintenance Results * Hepatitis C antibody Blood (02/16/2024 2:00 PM CDT) Hep C Ab Nonreactive Nonreactive Comment: Interpretive Data Nonreactive: Antibodies to HCV not detected. Does NOT exclude the possibility of recent exposure to HCV. Equivocal: Equivocal for HCV antibodies. Supplemental molecular testing will be automatically performed to determine infection status in accordance with current CDC screening recommendations. Reactive: Positive for HCV antibodies. This may represent current or past HCV infection. Supplemental molecular testing will be automatically performed to determine current infection status in accordance with current CDC screening recommendations. Interpretive data was last revised on 2019. Testing performed by: [facility] [facility], [place]., [address] Blood 02/16/2024 2:00 PM CDT 02/16/2024 5:03 PM CDT Beth Figueredo MD LAB MICROBIOLOGY - GENERAL ORDERABLES [facility] Result [facility] [id number] [facility] Department [place] [address] from Last 3 Months or Most Recently Relevant to Health Maintenance Insurance [facility] Care Teams Custom Dressmaker Relationship Specialty Start Date End Date Kolby Gant MD PCP - General 04/15/16
--- OUTSIDE RECORDS SUMMARY | 2025-04-13 12:25 | XMS_ITS | Clinical Summary ---
Author Organization [facility] Address [address] [place] [address] Care Team Providers Care Supervisor Word Processing Name Role Phone Kolby Gant MD Primary Care Provider [phone] [facility],non-owned Affiliates and Associated Physician Practices is amultiple site organization consisting of ambulatory clinics and hospital sitesin [place], [place], [place] and [place]. This disclosure is being madepursuant to the Care Everywhere program and may not contain all information available regarding this patient. Last updated 18.[facility] Allergies No known active allergies Medications * Be aware that medications may not be up to date on this document. Alwaysverify current medications with the patient. 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 Gender Identity Not on file Sexual Orientation Not on file Last Filed Vital Signs Vital Sign Reading Time Taken Comments Blood Pressure 110/68 10/23/2019 10:33 AM GUN STOCKER Pulse 117 10/23/2019 10:33 AM GUN STOCKER Temperature 37.1 C (98.7 F) 10/23/2019 10:33 AM GUN STOCKER Respiratory Rate 16 10/23/2019 10:33 AM GUN STOCKER Oxygen Saturation 98% 10/23/2019 10:33 AM GUN STOCKER Inhaled Oxygen Concentration - - Weight 63.5 kg (140 lb) 10/23/2019 10:33 AM GUN STOCKER Height 165.1 cm (5' 5) 10/23/2019 10:33 AM GUN STOCKER Body Mass Index 23.3 10/23/2019 10:33 AM GUN STOCKER Plan of Treatment Health Maintenance Due Date Last Done Comments HIV SCREENING 2007 HEPATITIS C SCREENING 05/10/2010 DTAP/TDAP/TD VACCINES (1 - Tdap) 2011 HEPATITIS B VACCINE (1 of 3 - 19+ 3-dose series) 2011 PAP SMEAR 2013 HPV VACCINE (1 - 3-dose SCDM series) 2019 COVID-19 VACCINE (2 - 2023-2 5 season) 2024 11/07/2020 DEPRESSION SCREENING 09/01/2024 INFLUENZA VACCINE (#1) 2025 2, 05/26/2020, 06/14/2018 ZOSTER VACCINE (1 of 2) 2042 HIB VACCINE Aged Out No longer eligi ble based on patient's age to complete this topic MENINGOCOCCAL (Group B) VACCINE SHARED DECISION-MAKING Aged Out No longer eligible based on patient's age to complete this topic MENINGOCOCCAL GROUPS A/C/Y/W VACCINE Aged Out No longer eligible b ased on patient's age to complete this topic PNEUMOCOCCAL VACCINE Aged Out No long er eligible based on patient's age to complete this topic Insurance [facility] Care Teams Supervisor Word Processing Relationship Specialty Start Date End Date Kolby Gant MD [address] [place] [address] PCP - General Family Medicine 10/23/19
--- OUTSIDE RECORDS SUMMARY | 2025-04-13 12:25 | XMS_ITS | Clinical Summary ---
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 Gender Identity Not on file Sexual Orientation Not on file Plan of Treatment Health Maintenance Due Date Last Done Comments Hepatitis C Virus (HCV) Screening 1992 Hepatitis B Immunization (4 of 4 - 4-dose series) 1992 1992, 1992, 1992 Pap Smear 2013 Cervical Cancer Screening (CCS) 2022 HPV/Cotest 2022 SARS-COV-2 Immunization ( season) 2024 Influenza Immunization (#1) 2025 05/26/2020, 1 Respiratory Syncytial Virus (RSV) Immunization (Adult) (1 - 1-dose 75+ series) 2067 Meningococcal Immunization (ACWY) Aged Out 07/09/2005 No longer eligible based on patient's age to complete this topic Human Papillomavirus (HPV) Immunization Completed 08/19/2007, 04/13/2007, 02/10/2007 DTaP/Tdap/Td Immunization Discontinued 2013, 02/10/2007, 04/24/1998, Additional history exists TdaP Immunization Completed 10/06/2013, 02/10/2007 Pneumococcal Immunization Combined Aged Out No longer eligible based on patient's age to complete this topic Rotavirus Immunization Aged Out No lo nger eligible based on patient's age to complete this topic
== END 2025-04-13 12:20 | disposition home or self-care (01) ==
PROVIDERS: PCP Family Medicine; Visit Provider Nurse Practitioner Adult Health
DX: M51.369 Other intervertebral disc degeneration, lumbar region without mention of lumbar back pain or lower extremity pain (principal); M41.9 Scoliosis, unspecified; M53.3 Sacrococcygeal disorders, not elsewhere classified; M54.2 Cervicalgia; Z98.1 Arthrodesis status
CPT/HCPCS: 72052; 72070; 72110; 72220